=== PATIENT | male | born 1970 | race Caucasian/White ===

== ENCOUNTER 2022-06-29 12:09 | Emergency (ER) | payer OTHER ==
[~2022-06-29] VITALS: Ht 180.3 cm; Wt 122.5 kg
[2022-06-29 12:12] VITALS: BP 116/69
--- NOTE | 2022-06-29 12:21 | NUR ---
PT AMB TO BED 7.
--- NOTE | 2022-06-29 12:35 | NUR ---
CAITLIN MONTELONGO AT BEDSIDE FOR EVALUATION
--- NOTE | 2022-06-29 12:39 | NUR ---
PT C/O RIGHT UNDER THE KNEE PAIN X3 WEEKS, PT STATES WAS REACHING OVERHEAD AND HEARD A "POP" SENT BY PCP TO R/O DVT
[2022-06-29] MEDS ORDERED: KETOROLAC 30 MG/ML VIAL IM ONE (12:45)
[2022-06-29] MEDS ORDERED: IBUP-2213 PO (13:54)
--- NOTE | 2022-06-29 13:58 | NUR ---
CAITLIN MONTELONGO RE-EVALUATING PATIENT AT BEDSIDE.
--- NOTE | 2022-06-29 14:04 | NUR ---
Patient discharged with v/s stable. Written and verbal after care instructions FOR HOW TO USE COLD THERAPY given and explained. Patient alert, oriented and verbalized understanding of instructions. Ambulatory with steady gait. All questions addressed prior to discharge. ID band removed. Patient advised to follow up with PMD. Rx of IBUPROFEN given. . Opportunity to ask questions provided and answered.
== END 2022-06-29 14:04 | disposition home or self-care (01) ==
LOC: MED 12:09
DX: S86.911A Strain of unspecified muscle(s) and tendon(s) at lower leg level, right leg, initial encounter (principal); Z79.1 Long term (current) use of non-steroidal anti-inflammatories (NSAID); X50.0XXA Overexertion from strenuous movement or load, initial encounter; Y92.009 Unspecified place in unspecified non-institutional (private) residence as the place of occurrence of the external cause; Y93.89 Activity, other specified; Y99.8 Other external cause status
CPT/HCPCS: 93971; 96372; 99285; J1885; Q0092